=== PATIENT | female | born 1990 | race Caucasian/White ===

== ENCOUNTER 2016-10-02 03:33 | Emergency (ER) | payer MEDICAID ==
[~2016-10-02] VITALS: Ht 162.6 cm; Wt 59.5 kg
[~2016-10-02 03:33] MED LIST: ACYC-113 PO; ACYC-114 PO; ALBU0.63 NEB; ALBU18HF; ALBU18HF INH; ALBU2.5V NPPB; ALBU6.7H INH; ALBU8.5H5; ALBU8.5H5 INH; ALPR0.5T6 PO; FLUT1DIS; FLUT1DIS3 INH; GUAI5SYR PO; LEVO500T33 PO; LEVO750T26 PO; METH4TAB2 PO; MONT10TA6 PO; POTA10TA11 PO; PRED-402 PO; PRED20TA PO; PRED5TAB19; PRED5TAB25 PO; PROVENTIL; SINGULAR; Ventolin HFA INH
[2016-10-02] MEDS ORDERED: ALBUTEROL SULFATE 2.5 MG/3 ML NPPB ONE (05:30)
[2016-10-02] MEDS ORDERED: ALBUTEROL SULFATE 2.5MG/0.5ML ONE (05:49)
[2016-10-02 06:00] VITALS: BP 118/72
== END 2016-10-02 06:02 | disposition home or self-care (01) ==
LOC: ED 05:56
DX: J45.41 Moderate persistent asthma with (acute) exacerbation (principal)
CPT/HCPCS: 71010; 93005; 94640; 99284; J7613

== ENCOUNTER 2016-10-09 03:57 | Outpatient (CLI) | payer MEDICAID ==
[~2016-10-09] VITALS: Ht 160 cm; Wt 63.0 kg
[2016-10-09 04:00] VITALS: BP 117/72
[2016-10-09 04:15] LABS: DAU SCREEN DISCLAIMER
[2016-10-09] MEDS ORDERED: ALBUTEROL SULFATE 2.5 MG/3 ML ONE (04:37)
[2016-10-09 04:49] LABS: PATH.CAST-FLAG NOT PRESENT; SPERM-FLAG NOT PRESENT; SRC-FLAG NOT PRESENT; XTAL-FLAG NOT PRESENT; YLC-FLAG NOT PRESENT
[2016-10-09] MEDS: ALBUTEROL SULFATE 2.5 MG/3 ML NPPB PRN (05:25)
== END 2016-10-09 05:07 | disposition home or self-care (01) ==
LOC: LDOP 03:57
PROVIDERS: ATTEND Obstetrics & Gynecology
DX: O26.892 Other specified pregnancy related conditions, second trimester (principal); R10.9 Unspecified abdominal pain; O99.512 Diseases of the respiratory system complicating pregnancy, second trimester; J45.909 Unspecified asthma, uncomplicated; Z3A.27 27 weeks gestation of pregnancy
CPT/HCPCS: 59025; 80307; 81001; 87086; 94640; 99211; J7613; G0463

== ENCOUNTER 2016-10-13 14:56 | Inpatient (IN) | payer MEDICAID ==
[~2016-10-13] VITALS: Ht 160 cm; Wt 65.3 kg
[2016-10-13] MEDS ORDERED: MAGNESIUM SULFATE 1 GM in SODIUM CHLORIDE 0.9% 50 ML IV ONE ×2 (16:00→17:00)
[2016-10-13] MEDS ORDERED: ALBUTEROL/IPRATROPIUM 2.5MG/0.5MG, 3 ML ONE ×2 (16:31→17:12)
[2016-10-13] MEDS: ALBUTEROL/IPRATROPIUM 2.5MG/0.5MG, 3 ML NPPB SCH ×2 (16:35→17:16)
[2016-10-13] MEDS ORDERED: DOCUSATE 100 MG CAPSULE PO PRN (17:00)
[2016-10-13] MEDS ORDERED: ALBUTEROL SULFATE 2.5MG/0.5ML NPPB PRN (17:00)
[2016-10-13] MEDS ORDERED: ONDANSETRON ODT 4 MG PO PRN (17:00)
[2016-10-13 17:13] LABS: HEMOGLOBIN 12.3 g/dL (11.7-16.4)
[2016-10-13 17:21] LABS: BLOOD UREA NITROGEN 9 mg/dL (7-18)
[2016-10-13] MEDS: SODIUM CHLORIDE 0.9% 1,000 ML IV SCH (17:49)
[2016-10-13 18:00] VITALS: BP 121/81
[2016-10-13 18:32] VITALS: BP 119/82
[2016-10-13] MEDS: ACETAMINOPHEN 325 MG TABLET PO PRN (20:04)
[2016-10-13] MEDS: ALBUTEROL SULFATE 2.5MG/0.5ML NPPB SCH (21:00)
[2016-10-13] MEDS ORDERED: NITROFURANTOIN (MACROBID) 100 MG CAPSULE PO SCH (21:00)
[2016-10-13] MEDS ORDERED: POTASSIUM CHLORIDE 20 MEQ TAB.ER.PRT PO ONE (21:00)
[2016-10-13 22:01] LABS: DAU SCREEN DISCLAIMER
[2016-10-14] MEDS: ALBUTEROL SULFATE 2.5MG/0.5ML NPPB SCH ×8 (00:18→21:43)
[2016-10-14 01:56] VITALS: BP 125/72
[2016-10-14] MEDS: SODIUM CHLORIDE 0.9% 1,000 ML IV SCH ×3 (02:19→16:38)
[2016-10-14] MEDS ORDERED: ALBUTEROL SULFATE 2.5 MG/3 ML ONE ×7 (04:01→21:34)
[2016-10-14 06:25] LABS: HEMOGLOBIN 11.1 g/dL (11.7-16.4)
[2016-10-14 06:35] LABS: BLOOD UREA NITROGEN 8 mg/dL (7-18)
[2016-10-14 08:22] VITALS: BP 112/75
[2016-10-14] MEDS ORDERED: MONTELUKAST 10 MG TABLET PO SCH (09:00)
[2016-10-14] MEDS ORDERED: PRENATAL VIT/IRON/FA 1 EACH TABLET PO SCH (09:00)
[2016-10-14] MEDS ORDERED: FLUTICASONE/VILANTEROL 200-25MCG/INH INH SCH (09:00)
[2016-10-14] MEDS: ACETAMINOPHEN 325 MG TABLET PO PRN ×2 (09:15→13:45)
[2016-10-14 12:28] VITALS: BP 114/69
[2016-10-14] MEDS ORDERED: DIPHENHYDRAMINE 25 MG CAPSULE PO PRN (18:30)
[2016-10-14 19:41] VITALS: BP 112/76
[2016-10-15] MEDS: SODIUM CHLORIDE 0.9% 1,000 ML IV SCH (00:38)
[2016-10-15 01:39] VITALS: BP 93/58
[2016-10-15] MEDS: ALBUTEROL SULFATE 2.5MG/0.5ML NPPB SCH ×2 (03:00→07:00)
[2016-10-15] MEDS ORDERED: ALBUTEROL SULFATE 2.5 MG/3 ML ONE (06:59)
[2016-10-15 07:00] VITALS: BP 116/72
[2016-10-15] MEDS ORDERED: LISINOPRIL 20 MG TABLET PO SCH (09:00)
== END 2016-10-15 08:32 | disposition home or self-care (01) | DRG 781 ==
LOC: ED 15:53 → EDIP 15:54 → ED 16:07 → 3NE 18:43 → 4EST 10-14 01:46
PROVIDERS: ADMIT Family Medicine; ATTEND Family Medicine
PROC: 0T9B70Z Drainage of Bladder with Drainage Device, Via Natural or Artificial Opening (ICD-10-PCS; principal; 2016-10-13)
DX: O99.512 Diseases of the respiratory system complicating pregnancy, second trimester (principal); J45.901 Unspecified asthma with (acute) exacerbation; O26.892 Other specified pregnancy related conditions, second trimester; O26.852 Spotting complicating pregnancy, second trimester; O99.342 Other mental disorders complicating pregnancy, second trimester; F41.9 Anxiety disorder, unspecified; R07.81 Pleurodynia; J38.3 Other diseases of vocal cords; W10.9XXA Fall (on) (from) unspecified stairs and steps, initial encounter; Z81.1 Family history of alcohol abuse and dependence; Z3A.27 27 weeks gestation of pregnancy; Z87.440 Personal history of urinary (tract) infections; Z87.59 Personal history of other complications of pregnancy, childbirth and the puerperium; Z87.891 Personal history of nicotine dependence; Z79.899 Other long term (current) drug therapy; Z81.8 Family history of other mental and behavioral disorders; Z88.6 Allergy status to analgesic agent; Z88.1 Allergy status to other antibiotic agents; Z91.010 Allergy to peanuts; Z88.8 Allergy status to other drugs, medicaments and biological substances; Z91.018 Allergy to other foods; O09.32 Supervision of pregnancy with insufficient antenatal care, second trimester; Y93.89 Activity, other specified; Y92.89 Other specified places as the place of occurrence of the external cause; Y99.8 Other external cause status
CPT/HCPCS: 36415; 71020; 76805; 80048; 80307; 81003; 85025; 94640; 96365; J3475; J7611; J7620; J7030; Q0163

== ENCOUNTER 2016-11-05 12:17 | Observation (INO) | payer MEDICAID ==
[~2016-11-05] VITALS: Ht 160 cm; Wt 62.7 kg
[2016-11-05 12:30] VITALS: BP 102/62
[2016-11-05] MEDS ORDERED: LACTATED RINGERS 1,000 ML IV SCH (13:00)
[2016-11-05] MEDS ORDERED: ONDANSETRON 2MG/ML, 2ML IVPush PRN (13:00)
[2016-11-05] MEDS ORDERED: ONDANSETRON 2MG/ML, 2ML ONE (13:02)
[2016-11-05 13:19] LABS: BLOOD UREA NITROGEN 5 mg/dL (7-18)
[2016-11-05 13:20] LABS: ASPARTATE AMINO TRANSFERASE 8 U/L (15-37)
[2016-11-05] MEDS ORDERED: ALBUTEROL SULFATE 2.5 MG/3 ML ONE (13:26)
[2016-11-05] MEDS ORDERED: ALBUTEROL SULFATE 2.5 MG/3 ML NPPB PRN (13:30)
[2016-11-05 13:41] LABS: PATH.CAST-FLAG NOT PRESENT; SPERM-FLAG NOT PRESENT; SRC-FLAG NOT PRESENT; XTAL-FLAG NOT PRESENT; YLC-FLAG NOT PRESENT
== END 2016-11-05 15:44 | disposition home or self-care (01) ==
LOC: LDOP 12:17 → LDIP 12:45
PROVIDERS: ADMIT Student in an Organized Health Care Education/Training Program; ATTEND Student in an Organized Health Care Education/Training Program
DX: O23.43 Unspecified infection of urinary tract in pregnancy, third trimester (principal); O21.2 Late vomiting of pregnancy; O99.513 Diseases of the respiratory system complicating pregnancy, third trimester; J45.909 Unspecified asthma, uncomplicated; O26.893 Other specified pregnancy related conditions, third trimester; R19.7 Diarrhea, unspecified; Z3A.29 29 weeks gestation of pregnancy
CPT/HCPCS: 36415; 59025; 80053; 81001; 85025; 94640; 96361; 96374; G0378; J2405; J7120; 96360; J7613

== ENCOUNTER 2017-03-11 08:35 | Emergency (ER) | payer MEDICAID ==
[~2017-03-11] VITALS: Ht 162.6 cm; Wt 69.7 kg
[~2017-03-11 08:35] MED LIST changes: -LEVO500T33 PO; +LEVO500T47 PO
[2017-03-11 08:37] VITALS: BP 118/72
== END 2017-03-11 09:37 | disposition home or self-care (01) ==
LOC: ED 08:53
DX: K02.9 Dental caries, unspecified (principal); K08.89 Other specified disorders of teeth and supporting structures; J45.902 Unspecified asthma with status asthmaticus; G43.909 Migraine, unspecified, not intractable, without status migrainosus; Z90.49 Acquired absence of other specified parts of digestive tract
CPT/HCPCS: 99283

== ENCOUNTER 2017-03-20 11:58 | Emergency (ER) | payer MEDICAID ==
[~2017-03-20] VITALS: Ht 162.6 cm; Wt 69.8 kg
[2017-03-20 12:00] VITALS: BP 112/71
== END 2017-03-20 13:16 | disposition home or self-care (01) ==
LOC: ED 12:26
DX: K08.89 Other specified disorders of teeth and supporting structures (principal)
CPT/HCPCS: 99283

== ENCOUNTER 2017-06-24 09:11 | Emergency (ER) | payer MEDICAID ==
[~2017-06-24] VITALS: Ht 160 cm; Wt 76.4 kg
[2017-06-24] MEDS ORDERED: ALBUTEROL/IPRATROPIUM 2.5MG/0.5MG, 3 ML ONE ×2 (09:46→11:04)
[2017-06-24 10:00] LABS: HEMOGLOBIN 14.1 g/dL (11.7-16.4); WHITE BLOOD COUNT 6.8 x10^3/uL (3.4-10)
[2017-06-24] MEDS ORDERED: ALBUTEROL/IPRATROPIUM 2.5MG/0.5MG, 3 ML NPPB ONE ×2 (10:00→11:00)
[2017-06-24 10:07] LABS: BLOOD UREA NITROGEN 7 mg/dL (7-18)
[2017-06-24 12:04] VITALS: BP 136/60
== END 2017-06-24 12:06 | disposition home or self-care (01) ==
LOC: ED 11:17
DX: J45.41 Moderate persistent asthma with (acute) exacerbation (principal); N30.90 Cystitis, unspecified without hematuria; Z90.49 Acquired absence of other specified parts of digestive tract
CPT/HCPCS: 36415; 71010; 76830; 80048; 81001; 82040; 84703; 85025; 87086; 93005; 94640; 99285; J7512; J7620

== ENCOUNTER 2017-08-26 01:58 | Emergency (ER) | payer MEDICAID, OTHER ==
[~2017-08-26] VITALS: Ht 162.6 cm; Wt 72.1 kg
[2017-08-26] MEDS ORDERED: HYDROcodone/APAP 5/325 TABLET PO ONE (02:30)
[2017-08-26] MEDS ORDERED: HYDROcodone/APAP 5/325 TABLET ONE (02:36)
[2017-08-26 02:48] LABS: CULTURE INDICATED? YES; MICROSCOPIC INDICATED
[2017-08-26 02:49] LABS: HCG UR SG 1.039 (1.003-1.030)
[2017-08-26 03:42] LABS: WET PREP WBCS FEW (FEW)
[2017-08-26 03:44] LABS: CLUE CELLS PRESENT (NONE SEEN)
[2017-08-26 03:58] LABS: BASOPHILS # (AUTO) 0.03 x10^3/uL (0-0.1); BASOPHILS % (AUTO) 0 % (0-1); EOSINOPHILS # (AUTO) 0.25 x10^3/uL (0-0.4); EOSINOPHILS % (AUTO) 2 % (1-7); LYMPHOCYTES # (AUTO) 2.27 x10^3/uL (1-3.4); LYMPHOCYTES % (AUTO) 20 % (22-44); MD NO; MEAN CORPUSCULAR HEMOGLOBIN 26.9 pg (27.0-34.8); MEAN CORPUSCULAR HGB CONC 33.1 g/dL (32.4-35.8); MEAN CORPUSCULAR VOLUME 81.3 fL (80-100); MEAN PLATELET VOLUME 8.8 fL (7.4-10.4); MONOCYTES # (AUTO) 0.67 x10^3/uL (0.2-0.8); MONOCYTES % (AUTO) 6 % (2-9); NEUTROPHILS # (AUTO) 8.07 x10^3/uL (1.8-6.8); NEUTROPHILS % (AUTO) 72 % (42-75); PLATELET COUNT 338 x10^3/uL (130-400); RED BLOOD COUNT 5.16 x10^6/uL (3.82-5.3); RED CELL DISTRIBUTION WIDTH 14.5 % (9.6-15.2)
[2017-08-26] MEDS ORDERED: KETOROLAC 30 MG/1 ML IM ONE (04:00)
[2017-08-26] MEDS ORDERED: CEFTRIAXONE 250 MG IM ONE (04:00)
[2017-08-26] MEDS ORDERED: AZITHROMYCIN 500 MG TABLET PO ONE (04:00)
[2017-08-26 04:09] LABS: ALBUMIN 3.4 g/dL (3.4-5.0); ANION GAP 11 mmol/L (5-15); CALCIUM 8.7 mg/dL (8.5-10.1); CHLORIDE 98 mmol/L (98-107)
[2017-08-26 04:13] LABS: ALANINE AMINOTRANSFERASE 15 U/L (12-78); ALKALINE PHOSPHATASE 132 U/L (45-117); BILIRUBIN,TOTAL 0.6 mg/dL (0.2-1.0); CREATININE 0.84 mg/dL (0.55-1.02)
[2017-08-26] MEDS ORDERED: CEFTRIAXONE 250 MG ONE (04:17)
[2017-08-26] MEDS ORDERED: AZITHROMYCIN 250 MG TABLET ONE (04:17)
[2017-08-26] MEDS ORDERED: KETOROLAC 30 MG/1 ML ONE (04:17)
[2017-08-26 05:01] VITALS: BP 112/62
== END 2017-08-26 05:05 | disposition home or self-care (01) ==
LOC: ED 02:12
DX: R10.2 Pelvic and perineal pain (principal); N89.8 Other specified noninflammatory disorders of vagina; R73.9 Hyperglycemia, unspecified; G43.909 Migraine, unspecified, not intractable, without status migrainosus; J45.909 Unspecified asthma, uncomplicated; M41.9 Scoliosis, unspecified; Z87.891 Personal history of nicotine dependence
CPT/HCPCS: 36415; 80053; 81001; 81025; 85025; 87077; 87086; 87186; 87210; 87491; 87591; 87808; 93005; 96372; 99285; J0696; J1885

== ENCOUNTER 2017-09-08 00:21 | Emergency (ER) | payer OTHER ==
[~2017-09-08] VITALS: Ht 162.6 cm; Wt 70.0 kg
[2017-09-08] MEDS ORDERED: ALBUTEROL/IPRATROPIUM 2.5MG/0.5MG, 3 ML NPPB ONE (01:00)
[2017-09-08 01:04] LABS: CULTURE INDICATED? YES; MICROSCOPIC INDICATED
[2017-09-08] MEDS ORDERED: ALBUTEROL/IPRATROPIUM 2.5MG/0.5MG, 3 ML ONE ×2 (01:19→02:00)
[2017-09-08 01:52] VITALS: BP 11/76
[2017-09-08] MEDS ORDERED: ALBUTEROL SULFATE 2.5 MG/3 ML NPPB ONE (02:00)
[2017-09-12] MEDS ORDERED: METF500T4 PO (01:54)
[2017-09-12] MEDS ORDERED: PRED5TAB19 PO (05:46)
[2017-09-12] MEDS ORDERED: BUDE10.2 IH (05:46)
[2017-09-12] MEDS ORDERED: FLUO10CA13 PO (05:46)
[2017-09-12] MEDS ORDERED: METR500T PO (05:46)
== END 2017-09-08 02:20 | disposition home or self-care (01) ==
LOC: ED 00:43
DX: J20.8 Acute bronchitis due to other specified organisms (principal); B97.89 Other viral agents as the cause of diseases classified elsewhere; B37.3 Candidiasis of vulva and vagina; E11.65 Type 2 diabetes mellitus with hyperglycemia; J45.901 Unspecified asthma with (acute) exacerbation; G43.909 Migraine, unspecified, not intractable, without status migrainosus; M41.9 Scoliosis, unspecified; Z88.8 Allergy status to other drugs, medicaments and biological substances; Z88.1 Allergy status to other antibiotic agents; Z90.49 Acquired absence of other specified parts of digestive tract
CPT/HCPCS: 71046; 81001; 87086; 94640; 99285; J7512; J7613; J7620

== ENCOUNTER 2017-09-28 18:46 | Emergency (ER) | payer MEDICAID ==
[~2017-09-28] VITALS: Ht 161.3 cm; Wt 66.2 kg
[~2017-09-28 18:46] MED LIST changes: +BUDE10.2 IH; +FLUO10CA13 PO; +INSU100I13 SQ-INSULIN; +METF500T4 PO; +METR500T PO; +PRED5TAB19 PO
[2017-09-28] MEDS ORDERED: SODIUM CHLORIDE 0.9% 1,000ML IVBOLUS ONE (19:00)
[2017-09-28 19:27] LABS: FIO2 ROOM AIR %; PH, VENOUS 7.364 pH (7.320-7.420)
[2017-09-28] MEDS ORDERED: INSULIN REGULAR 100 UNITS/ML, 3ML VIAL IVPush ONE (19:30)
[2017-09-28 19:32] LABS: BASOPHILS # (AUTO) 0.07 x10^3/uL (0-0.1); BASOPHILS % (AUTO) 1 % (0-1); EOSINOPHILS # (AUTO) 0.36 x10^3/uL (0-0.4); EOSINOPHILS % (AUTO) 5 % (1-7); LYMPHOCYTES # (AUTO) 2.04 x10^3/uL (1-3.4); LYMPHOCYTES % (AUTO) 26 % (22-44); MD NO; MEAN CORPUSCULAR HEMOGLOBIN 27.2 pg (27.0-34.8); MEAN CORPUSCULAR HGB CONC 33.2 g/dL (32.4-35.8); MEAN CORPUSCULAR VOLUME 81.8 fL (80-100); MEAN PLATELET VOLUME 8.5 fL (7.4-10.4); MONOCYTES # (AUTO) 0.64 x10^3/uL (0.2-0.8); MONOCYTES % (AUTO) 8 % (2-9); NEUTROPHILS # (AUTO) 4.68 x10^3/uL (1.8-6.8); NEUTROPHILS % (AUTO) 60 % (42-75); PLATELET COUNT 347 x10^3/uL (130-400); RED BLOOD COUNT 5.75 x10^6/uL (3.82-5.3); RED CELL DISTRIBUTION WIDTH 14.8 % (9.6-15.2)
[2017-09-28 19:39] LABS: ACETONE, SERUM Small (20mg/dL) mg/dL (Negative)
[2017-09-28 19:40] LABS: ALANINE AMINOTRANSFERASE 20 U/L (12-78); ALBUMIN 3.9 g/dL (3.4-5.0); ANION GAP 9 mmol/L (5-15); CHLORIDE 105 mmol/L (98-107); CREATININE 0.67 mg/dL (0.55-1.02)
[2017-09-28] MEDS ORDERED: INSULIN REGULAR 100 UNITS/ML, 3ML VIAL ONE (19:40)
[2017-09-28 19:42] LABS: ALKALINE PHOSPHATASE 119 U/L (45-117); BILIRUBIN,TOTAL 0.8 mg/dL (0.2-1.0); TOTAL PROTEIN 7.7 g/dL (6.4-8.2)
[2017-09-28] MEDS ORDERED: ALBUTEROL SULFATE 2.5 MG/3 ML ONE (19:45)
[2017-09-28 19:48] LABS: MICROSCOPIC INDICATED
[2017-09-28 19:52] LABS: CULTURE INDICATED? YES
[2017-09-28] MEDS ORDERED: ALBUTEROL SULFATE 2.5 MG/3 ML NPPB ONE (20:00)
[2017-09-28] MEDS ORDERED: FLUCONAZOLE 100 MG TABLET ONE (20:10)
[2017-09-28] MEDS ORDERED: CEFTRIAXONE PMX 1GM/50ML 50 ML ONE (20:11)
[2017-09-28] MEDS ORDERED: KETOROLAC 30 MG/1 ML ONE (20:11)
[2017-09-28] MEDS ORDERED: FLUCONAZOLE 100 MG TABLET PO ONE (20:30)
[2017-09-28] MEDS ORDERED: CEFTRIAXONE PMX 1GM/50ML 50 ML IV ONE (20:30)
[2017-09-28] MEDS ORDERED: KETOROLAC 30 MG/1 ML IVPush ONE (20:30)
[2017-09-28 21:29] VITALS: BP 122/69
== END 2017-09-28 21:32 | disposition home or self-care (01) ==
LOC: ED 19:48
DX: N30.00 Acute cystitis without hematuria (principal); J45.21 Mild intermittent asthma with (acute) exacerbation; E11.65 Type 2 diabetes mellitus with hyperglycemia; Z79.4 Long term (current) use of insulin
CPT/HCPCS: 36415; 71046; 80053; 81001; 82010; 82803; 85025; 87086; 94640; 96361; 96365; 96375; 99285; J0696; J1885; J7030; J7613

== ENCOUNTER 2017-09-30 11:31 | Emergency (ER) | payer MEDICAID ==
[~2017-09-30] VITALS: Ht 160 cm; Wt 66.9 kg
[2017-09-30 13:41] LABS: PH, VENOUS 7.367 pH (7.320-7.420)
[2017-09-30 13:42] LABS: BASOPHILS # (AUTO) 0.06 x10^3/uL (0-0.1); BASOPHILS % (AUTO) 1 % (0-1); EOSINOPHILS # (AUTO) 0.45 x10^3/uL (0-0.4); EOSINOPHILS % (AUTO) 7 % (1-7); LYMPHOCYTES # (AUTO) 1.87 x10^3/uL (1-3.4); LYMPHOCYTES % (AUTO) 30 % (22-44); MD NO; MEAN CORPUSCULAR HEMOGLOBIN 26.9 pg (27.0-34.8); MEAN CORPUSCULAR HGB CONC 33.2 g/dL (32.4-35.8); MEAN CORPUSCULAR VOLUME 80.9 fL (80-100); MEAN PLATELET VOLUME 8.2 fL (7.4-10.4); MONOCYTES # (AUTO) 0.51 x10^3/uL (0.2-0.8); MONOCYTES % (AUTO) 8 % (2-9); NEUTROPHILS # (AUTO) 3.39 x10^3/uL (1.8-6.8); NEUTROPHILS % (AUTO) 54 % (42-75); PLATELET COUNT 309 x10^3/uL (130-400); RED BLOOD COUNT 5.55 x10^6/uL (3.82-5.3); RED CELL DISTRIBUTION WIDTH 15.1 % (9.6-15.2)
[2017-09-30 13:51] LABS: ACETONE, SERUM Small (20mg/dL) mg/dL (Negative)
[2017-09-30 13:55] LABS: ALANINE AMINOTRANSFERASE 20 U/L (12-78); ALBUMIN 3.7 g/dL (3.4-5.0); ANION GAP 8 mmol/L (5-15); CALCIUM 8.5 mg/dL (8.5-10.1); CHLORIDE 106 mmol/L (98-107); CREATININE 0.63 mg/dL (0.55-1.02)
[2017-09-30 13:57] LABS: ALKALINE PHOSPHATASE 107 U/L (45-117); BILIRUBIN,TOTAL 0.8 mg/dL (0.2-1.0); TOTAL PROTEIN 7.3 g/dL (6.4-8.2)
[2017-09-30] MEDS ORDERED: ONDANSETRON 2MG/ML, 2ML IVPush ONE (14:00)
[2017-09-30] MEDS ORDERED: ALBUTEROL/IPRATROPIUM 2.5MG/0.5MG, 3 ML NPPB ONE (14:00)
[2017-09-30] MEDS ORDERED: MORPHINE SULFATE 4 MG/ML, 1ML IVPush PRN (14:00)
[2017-09-30] MEDS ORDERED: SODIUM CHLORIDE 0.9% 1,000ML IVBOLUS ONE (14:00)
[2017-09-30] MEDS ORDERED: SODIUM CHLORIDE 0.9% 1,000 ML IV ONE (14:00)
[2017-09-30] MEDS ORDERED: MORPHINE SULFATE 4 MG/ML, 1ML ONE (14:07)
[2017-09-30] MEDS ORDERED: ONDANSETRON 2MG/ML, 2ML ONE (14:07)
[2017-09-30] MEDS ORDERED: ALBUTEROL/IPRATROPIUM 2.5MG/0.5MG, 3 ML ONE (14:08)
[2017-09-30 14:40] LABS: MICROSCOPIC INDICATED
[2017-09-30 15:19] LABS: CULTURE INDICATED? NO
[2017-09-30 16:22] VITALS: BP 104/60
== END 2017-09-30 16:32 | disposition home or self-care (01) ==
LOC: ED 14:52
DX: J45.30 Mild persistent asthma, uncomplicated (principal); R10.13 Epigastric pain; R10.11 Right upper quadrant pain; E11.65 Type 2 diabetes mellitus with hyperglycemia
CPT/HCPCS: 36415; 71045; 80053; 81001; 82010; 82803; 83690; 85025; 93005; 94640; 96361; 96374; 96375; 99285; J2405; J7030; 82962

== ENCOUNTER 2017-10-10 01:42 | Emergency (ER) | payer MEDICAID ==
[~2017-10-10] VITALS: Ht 162.6 cm; Wt 66.0 kg
[2017-10-10 02:14] LABS: PH, VENOUS 7.366 pH (7.320-7.420)
[2017-10-10 02:19] LABS: BASOPHILS # (AUTO) 0.06 x10^3/uL (0-0.1); BASOPHILS % (AUTO) 1 % (0-1); EOSINOPHILS % (AUTO) 6 % (1-7); LYMPHOCYTES # (AUTO) 1.84 x10^3/uL (1-3.4); LYMPHOCYTES % (AUTO) 27 % (22-44); MD NO; MEAN CORPUSCULAR HEMOGLOBIN 27.4 pg (27.0-34.8); MEAN CORPUSCULAR HGB CONC 33.3 g/dL (32.4-35.8); MEAN CORPUSCULAR VOLUME 82.2 fL (80-100); MEAN PLATELET VOLUME 8.4 fL (7.4-10.4); MONOCYTES # (AUTO) 0.47 x10^3/uL (0.2-0.8); MONOCYTES % (AUTO) 7 % (2-9); NEUTROPHILS # (AUTO) 3.96 x10^3/uL (1.8-6.8); NEUTROPHILS % (AUTO) 59 % (42-75); PLATELET COUNT 367 x10^3/uL (130-400); RED BLOOD COUNT 5.21 x10^6/uL (3.82-5.3); RED CELL DISTRIBUTION WIDTH 15.4 % (9.6-15.2)
[2017-10-10 02:25] LABS: ACETONE, SERUM Small (20mg/dL) mg/dL (Negative)
[2017-10-10 02:28] LABS: ALANINE AMINOTRANSFERASE 23 U/L (12-78); ALBUMIN 3.7 g/dL (3.4-5.0); ANION GAP 11 mmol/L (5-15); CALCIUM 8.7 mg/dL (8.5-10.1); CHLORIDE 102 mmol/L (98-107); CREATININE 0.93 mg/dL (0.55-1.02)
[2017-10-10 02:30] LABS: ALKALINE PHOSPHATASE 150 U/L (45-117); BILIRUBIN,TOTAL 0.4 mg/dL (0.2-1.0); TOTAL PROTEIN 7.3 g/dL (6.4-8.2)
[2017-10-10] MEDS ORDERED: SODIUM CHLORIDE 0.9% 1,000ML IVBOLUS ONE (02:30)
[2017-10-10] MEDS ORDERED: KETOROLAC 30 MG/1 ML ONE (02:50)
[2017-10-10] MEDS ORDERED: INSULIN REGULAR 100 UNITS/ML, 3ML VIAL IVPush ONE (03:00)
[2017-10-10] MEDS ORDERED: KETOROLAC 30 MG/1 ML IVPush ONE (03:00)
[2017-10-10 04:22] VITALS: BP 140/86
== END 2017-10-10 04:36 | disposition home or self-care (01) ==
LOC: ED 02:47
DX: E11.65 Type 2 diabetes mellitus with hyperglycemia (principal); Z91.19 Patient's noncompliance with other medical treatment and regimen; Z79.899 Other long term (current) drug therapy; Z90.49 Acquired absence of other specified parts of digestive tract; Z88.1 Allergy status to other antibiotic agents; G43.909 Migraine, unspecified, not intractable, without status migrainosus; Z79.84 Long term (current) use of oral hypoglycemic drugs
CPT/HCPCS: 36415; 80053; 82010; 82803; 85025; 93005; 96374; 96375; 99285; J1885; J7030

== ENCOUNTER 2017-12-06 13:34 | Emergency (ER) | payer MEDICAID ==
[~2017-12-06] VITALS: Ht 154.9 cm; Wt 68.9 kg
[2017-12-06] MEDS ORDERED: SODIUM CHLORIDE 0.9% 1,000ML IVBOLUS ONE (14:00)
[2017-12-06] MEDS ORDERED: SODIUM CHLORIDE FLUSH 10ML SYR IVF ONE (14:00)
[2017-12-06] MEDS ORDERED: ALBUTEROL/IPRATROPIUM 2.5MG/0.5MG, 3 ML NPPB ONE (14:00)
[2017-12-06] MEDS ORDERED: ALBUTEROL/IPRATROPIUM 2.5MG/0.5MG, 3 ML ONE ×2 (14:03→14:46)
[2017-12-06 14:22] LABS: BASOPHILS # (AUTO) 0.02 x10^3/uL (0-0.1); BASOPHILS % (AUTO) 0 % (0-1); EOSINOPHILS # (AUTO) 0.46 x10^3/uL (0-0.4); EOSINOPHILS % (AUTO) 4 % (1-7); LYMPHOCYTES # (AUTO) 1.43 x10^3/uL (1-3.4); LYMPHOCYTES % (AUTO) 13 % (22-44); MD NO; MEAN CORPUSCULAR HEMOGLOBIN 27.9 pg (27.0-34.8); MEAN CORPUSCULAR VOLUME 84.8 fL (80-100); MEAN PLATELET VOLUME 7.7 fL (7.4-10.4); MONOCYTES # (AUTO) 0.73 x10^3/uL (0.2-0.8); MONOCYTES % (AUTO) 6 % (2-9); NEUTROPHILS # (AUTO) 8.67 x10^3/uL (1.8-6.8); NEUTROPHILS % (AUTO) 77 % (42-75); PLATELET COUNT 382 x10^3/uL (130-400); RED CELL DISTRIBUTION WIDTH 13.8 % (9.6-15.2)
[2017-12-06 14:30] LABS: ALANINE AMINOTRANSFERASE 19 U/L (12-78); ALBUMIN 3.4 g/dL (3.4-5.0); ANION GAP 8 mmol/L (5-15); CALCIUM 8.7 mg/dL (8.5-10.1); CHLORIDE 111 mmol/L (98-107); CREATININE 0.66 mg/dL (0.55-1.02)
[2017-12-06 14:35] LABS: ALKALINE PHOSPHATASE 70 U/L (45-117); BILIRUBIN,TOTAL 0.3 mg/dL (0.2-1.0); TOTAL PROTEIN 7.2 g/dL (6.4-8.2)
[2017-12-06 14:56] LABS: MICROSCOPIC INDICATED
[2017-12-06 15:08] LABS: CULTURE INDICATED? NO
[2017-12-06 15:45] VITALS: BP 115/69
== END 2017-12-06 15:48 | disposition home or self-care (01) ==
LOC: ED 15:36
DX: E10.65 Type 1 diabetes mellitus with hyperglycemia (principal); E10.649 Type 1 diabetes mellitus with hypoglycemia without coma; J45.31 Mild persistent asthma with (acute) exacerbation; J02.9 Acute pharyngitis, unspecified; G43.909 Migraine, unspecified, not intractable, without status migrainosus; Z79.4 Long term (current) use of insulin
CPT/HCPCS: 80053; 81001; 82962; 83690; 84703; 85025; 93005; 94640; 96360; 99285; J7030; J7620

== ENCOUNTER 2017-12-06 19:43 | Emergency (ER) | payer MEDICAID ==
[~2017-12-06] VITALS: Ht 160 cm; Wt 69.7 kg
[2017-12-06 19:44] VITALS: BP 124/80
[2017-12-06] MEDS ORDERED: HYDROcodone/APAP 7.5-325MG/15ML UDC PO PRN (20:00)
[2017-12-06] MEDS ORDERED: ALBUTEROL/IPRATROPIUM 2.5MG/0.5MG, 3 ML ONE ×2 (20:14→21:05)
[2017-12-06] MEDS: ALBUTEROL/IPRATROPIUM 2.5MG/0.5MG, 3 ML NPPB SCH ×2 (20:29→21:25)
[2017-12-06] MEDS ORDERED: HYDROcodone/APAP 7.5-325MG/15ML UDC ONE (20:38)
== END 2017-12-06 21:45 | disposition home or self-care (01) ==
LOC: ED 21:41
DX: J45.21 Mild intermittent asthma with (acute) exacerbation (principal); J02.8 Acute pharyngitis due to other specified organisms; E11.65 Type 2 diabetes mellitus with hyperglycemia; Z98.51 Tubal ligation status; Z88.1 Allergy status to other antibiotic agents; Z79.84 Long term (current) use of oral hypoglycemic drugs
CPT/HCPCS: 71046; 82962; 87081; 87880; 94640; 99285; J7512; J7620

== ENCOUNTER 2018-01-18 04:13 | Emergency (ER) | payer MEDICAID ==
[~2018-01-18] VITALS: Ht 162.6 cm; Wt 68.9 kg
[~2018-01-18 04:13] MED LIST changes: -METF500T4 PO; +METF500T5 PO
[2018-01-18] MEDS ORDERED: ALBUTEROL/IPRATROPIUM 2.5MG/0.5MG, 3 ML ONE ×2 (04:27→06:19)
[2018-01-18] MEDS ORDERED: ONDANSETRON ODT 4 MG ONE (04:41)
[2018-01-18] MEDS ORDERED: ONDANSETRON ODT 4 MG PO ONE (05:00)
[2018-01-18 05:34] LABS: ALBUMIN 3.5 g/dL (3.4-5.0); ANION GAP 9 mmol/L (5-15); BASOPHILS # (AUTO) 0.08 x10^3/uL (0-0.1); BASOPHILS % (AUTO) 1 % (0-1); CALCIUM 8.5 mg/dL (8.5-10.1); CHLORIDE 110 mmol/L (98-107); EOSINOPHILS # (AUTO) 0.42 x10^3/uL (0-0.4); EOSINOPHILS % (AUTO) 4 % (1-7); LYMPHOCYTES % (AUTO) 30 % (22-44); MD NO; MEAN CORPUSCULAR HEMOGLOBIN 27.6 pg (27.0-34.8); MEAN CORPUSCULAR HGB CONC 32.7 g/dL (32.4-35.8); MEAN CORPUSCULAR VOLUME 84.3 fL (80-100); MEAN PLATELET VOLUME 8.4 fL (7.4-10.4); MONOCYTES # (AUTO) 0.71 x10^3/uL (0.2-0.8); MONOCYTES % (AUTO) 7 % (2-9); NEUTROPHILS # (AUTO) 5.94 x10^3/uL (1.8-6.8); NEUTROPHILS % (AUTO) 59 % (42-75); PLATELET COUNT 329 x10^3/uL (130-400); RED BLOOD COUNT 4.93 x10^6/uL (3.82-5.3); RED CELL DISTRIBUTION WIDTH 14.5 % (9.6-15.2)
[2018-01-18 05:36] LABS: CREATININE 0.58 mg/dL (0.55-1.02)
[2018-01-18] MEDS ORDERED: ALBUTEROL SULFATE 2.5 MG/3 ML NPPB ONE (06:00)
[2018-01-18 06:02] VITALS: BP 100/56
== END 2018-01-18 07:27 | disposition home or self-care (01) ==
LOC: ED 05:22
DX: J45.41 Moderate persistent asthma with (acute) exacerbation (principal); G43.909 Migraine, unspecified, not intractable, without status migrainosus; J45.909 Unspecified asthma, uncomplicated; E11.65 Type 2 diabetes mellitus with hyperglycemia; J96.90 Respiratory failure, unspecified, unspecified whether with hypoxia or hypercapnia; Z87.891 Personal history of nicotine dependence; Z98.51 Tubal ligation status
CPT/HCPCS: 36415; 71046; 80048; 82040; 85025; 94640; 99285; J7512; J7613; Q0162

== ENCOUNTER 2018-02-08 17:44 | Inpatient (IN) | payer MEDICAID ==
[~2018-02-08] VITALS: Ht 160 cm; Wt 68.2 kg
[2018-02-08 18:30] LABS: BASOPHILS # (AUTO) 0.06 x10^3/uL (0-0.1); BASOPHILS % (AUTO) 1 % (0-1); EOSINOPHILS # (AUTO) 0.43 x10^3/uL (0-0.4); EOSINOPHILS % (AUTO) 6 % (1-7); LYMPHOCYTES # (AUTO) 2.42 x10^3/uL (1-3.4); LYMPHOCYTES % (AUTO) 32 % (22-44); MD NO; MEAN CORPUSCULAR HEMOGLOBIN 28.6 pg (27.0-34.8); MEAN CORPUSCULAR HGB CONC 34.1 g/dL (32.4-35.8); MEAN PLATELET VOLUME 7.9 fL (7.4-10.4); MONOCYTES # (AUTO) 0.49 x10^3/uL (0.2-0.8); MONOCYTES % (AUTO) 7 % (2-9); NEUTROPHILS # (AUTO) 4.21 x10^3/uL (1.8-6.8); NEUTROPHILS % (AUTO) 55 % (42-75); PLATELET COUNT 374 x10^3/uL (130-400); RED BLOOD COUNT 4.94 x10^6/uL (3.82-5.3); RED CELL DISTRIBUTION WIDTH 15.1 % (9.6-15.2)
[2018-02-08 18:32] LABS: ALANINE AMINOTRANSFERASE 22 U/L (12-78); ALBUMIN 3.8 g/dL (3.4-5.0); ANION GAP 8 mmol/L (5-15); CALCIUM 8.9 mg/dL (8.5-10.1); CHLORIDE 107 mmol/L (98-107); CREATININE 0.75 mg/dL (0.55-1.02)
[2018-02-08 18:34] LABS: ALKALINE PHOSPHATASE 79 U/L (45-117); BILIRUBIN,TOTAL 0.2 mg/dL (0.2-1.0); TOTAL PROTEIN 7.5 g/dL (6.4-8.2)
[2018-02-08 18:41] LABS: ACETONE, SERUM Negative (Negative)
[2018-02-08] MEDS ORDERED: ALBUTEROL/IPRATROPIUM 2.5MG/0.5MG, 3 ML ONE ×2 (20:59→23:30)
[2018-02-08] MEDS: ALBUTEROL/IPRATROPIUM 2.5MG/0.5MG, 3 ML NPPB SCH ×2 (21:02→21:03)
[2018-02-08] MEDS ORDERED: ALBUTEROL 0.5%, 20ML ONE (21:08)
[2018-02-08] MEDS ORDERED: MAGNESIUM SULFATE PMX 2GM/50ML 50 ML IVPB ONE (22:00)
[2018-02-08 22:33] LABS: MICROSCOPIC NOT IND
[2018-02-08 22:38] LABS: CULTURE INDICATED? NO
[2018-02-09] MEDS ORDERED: LABETALOL 5MG/ML, 20ML IVPush PRN (02:00)
[2018-02-09] MEDS ORDERED: ONDANSETRON ODT 4 MG PO PRN (02:00)
[2018-02-09] MEDS ORDERED: ALBUTEROL SULFATE 2.5MG/0.5ML NPPB PRN (02:00)
[2018-02-09] MEDS ORDERED: ALBUTEROL/IPRATROPIUM 2.5MG/0.5MG, 3 ML NPPB SCH (03:00)
[2018-02-09] MEDS ORDERED: ALBUTEROL/IPRATROPIUM 2.5MG/0.5MG, 3 ML NPPB PRN (03:00)
[2018-02-09] MEDS ORDERED: ALBUTEROL/IPRATROPIUM 2.5MG/0.5MG, 3 ML ONE ×3 (03:23→12:43)
[2018-02-09] MEDS: ALBUTEROL/IPRATROPIUM 2.5MG/0.5MG, 3 ML NPPB SCH ×6 (03:28→23:00)
[2018-02-09] MEDS ORDERED: methylPREDNISolone SOD SUCC 40 MG/ML ONE ×3 (03:40→18:21)
[2018-02-09] MEDS: methylPREDNISolone SOD SUCC 40 MG/ML IV SCH ×3 (03:47→18:23)
[2018-02-09 05:45] LABS: ANION GAP 13 mmol/L (5-15); CALCIUM 9.1 mg/dL (8.5-10.1); CHLORIDE 101 mmol/L (98-107); CREATININE 1.09 mg/dL (0.55-1.02)
[2018-02-09 05:58] LABS: HEMOGLOBIN A1C 7.6 % (4.2-6.3)
[2018-02-09] MEDS ORDERED: LORazepam 0.5MG TABLET ONE ×2 (07:37→12:28)
[2018-02-09] MEDS: LORazepam 0.5MG TABLET PO PRN ×3 (07:41→20:08)
[2018-02-09] MEDS: INSULIN LISPRO 100 UNITS/ML, PEN SQ-INSULIN SCH ×4 (08:43→22:42)
[2018-02-09] MEDS ORDERED: FLUTICASONE/VILANTEROL 100-25MCG/INH INH SCH (09:00)
[2018-02-09] MEDS ORDERED: TEMPLATE NON-FORMULARY MED. (Montelukast Sodium** (Singulair**) 10 MG) PO SCH (09:00)
[2018-02-09] MEDS ORDERED: ACETAMINOPHEN 500 MG TABLET ONE ×2 (09:23→12:28)
[2018-02-09] MEDS ORDERED: FLUOXETINE 10 MG CAP ONE (10:15)
[2018-02-09] MEDS ORDERED: AZITHROMYCIN 500 MG TABLET ONE (10:15)
[2018-02-09] MEDS: FLUOXETINE 10 MG CAP PO SCH (10:19)
[2018-02-09] MEDS: ACETAMINOPHEN 500 MG TABLET PO PRN ×2 (10:19→12:40)
[2018-02-09] MEDS: metFORMIN 500 MG TABLET PO SCH ×2 (10:19→22:41)
[2018-02-09] MEDS: AZITHROMYCIN 500 MG TABLET PO SCH (10:19)
[2018-02-09] MEDS ORDERED: MONTELUKAST 10 MG TABLET PO SCH (19:04)
[2018-02-09 20:00] VITALS: BP 129/73
[2018-02-09] MEDS: KETOROLAC 30 MG/1 ML IM/IV PRN (20:08)
[2018-02-09] MEDS ORDERED: INSU100I11 SQ-INSULIN (20:31)
[2018-02-09] MEDS ORDERED: INSULIN GLARGINE 100 UNITS/ML, PEN SQ-INSULIN SCH (21:00)
[2018-02-09] MEDS ORDERED: HYDROcodone/APAP 5/325 TABLET PO ONE (22:00)
[2018-02-10 01:40] VITALS: BP 97/52
[2018-02-10] MEDS: KETOROLAC 30 MG/1 ML IM/IV PRN (02:47)
[2018-02-10] MEDS: methylPREDNISolone SOD SUCC 40 MG/ML IV SCH ×2 (02:47→11:26)
[2018-02-10 02:50] VITALS: BP 108/57
[2018-02-10] MEDS: ALBUTEROL/IPRATROPIUM 2.5MG/0.5MG, 3 ML NPPB SCH ×2 (03:00→06:55)
[2018-02-10] MEDS ORDERED: SODIUM CHLORIDE 0.9% 100 ML IV SCH (06:30)
[2018-02-10 06:59] VITALS: BP 113/63
[2018-02-10] MEDS: FLUOXETINE 10 MG CAP PO SCH (07:59)
[2018-02-10] MEDS: AZITHROMYCIN 500 MG TABLET PO SCH (07:59)
[2018-02-10] MEDS ORDERED: ACETAMINOPHEN 500 MG TABLET PO ONE (08:01)
[2018-02-10] MEDS: INSULIN LISPRO 100 UNITS/ML, PEN SQ-INSULIN SCH ×2 (08:01→11:28)
[2018-02-10] MEDS ORDERED: IPRA3AMP30 NPPB (12:51)
[2018-02-10] MEDS ORDERED: MELOXICAM 15 MG TABLET PO ONE (13:00)
[2018-02-10 13:32] VITALS: BP 123/77
[2018-02-10] MEDS ORDERED: ACETAMINOPHEN 500 MG TABLET PO SCH (16:00)
[2018-02-10] MEDS ORDERED: INSULIN GLARGINE 100 UNITS/ML, PEN SQ-INSULIN SCH (21:00)
== END 2018-02-10 13:30 | disposition home or self-care (01) | DRG 189 ==
LOC: ED 22:33 → EDIP 02-09 01:03 → 4WST 02-09 18:41
PROVIDERS: ADMIT Family Medicine; ATTEND Family Medicine
DX: J96.01 Acute respiratory failure with hypoxia (principal); J45.51 Severe persistent asthma with (acute) exacerbation; F17.210 Nicotine dependence, cigarettes, uncomplicated; F41.1 Generalized anxiety disorder; G43.909 Migraine, unspecified, not intractable, without status migrainosus; F32.9 Major depressive disorder, single episode, unspecified; R00.0 Tachycardia, unspecified; N89.8 Other specified noninflammatory disorders of vagina; F11.90 Opioid use, unspecified, uncomplicated; M41.9 Scoliosis, unspecified; F12.90 Cannabis use, unspecified, uncomplicated; E11.65 Type 2 diabetes mellitus with hyperglycemia; R10.31 Right lower quadrant pain; I10 Essential (primary) hypertension; Z87.440 Personal history of urinary (tract) infections; Z91.19 Patient's noncompliance with other medical treatment and regimen; Z90.49 Acquired absence of other specified parts of digestive tract; Z79.4 Long term (current) use of insulin; Z98.51 Tubal ligation status; Z88.6 Allergy status to analgesic agent; Z88.1 Allergy status to other antibiotic agents; Z91.010 Allergy to peanuts; Z88.8 Allergy status to other drugs, medicaments and biological substances; Z91.018 Allergy to other foods
CPT/HCPCS: 36415; 99285; J7620; 71045; 80048; 80053; 81003; 82010; 82800; 82962; 83036; 84703; 85025; 94640; 94644; 96365; 96366; J1885; J1815; J2920; J3475; J7512

== ENCOUNTER 2018-03-04 11:39 | Emergency (ER) | payer MEDICAID ==
[~2018-03-04] VITALS: Ht 162.6 cm; Wt 69.1 kg
[~2018-03-04 11:39] MED LIST changes: +INSU100I11 SQ-INSULIN; +IPRA3AMP30 NPPB
[2018-03-04] MEDS ORDERED: ALBUTEROL/IPRATROPIUM 2.5MG/0.5MG, 3 ML ONE (13:10)
[2018-03-04] MEDS: ALBUTEROL/IPRATROPIUM 2.5MG/0.5MG, 3 ML NPPB SCH ×2 (13:19→13:21)
[2018-03-04 13:21] LABS: BASOPHILS # (AUTO) 0.05 x10^3/uL (0-0.1); BASOPHILS % (AUTO) 1 % (0-1); EOSINOPHILS # (AUTO) 0.51 x10^3/uL (0-0.4); EOSINOPHILS % (AUTO) 8 % (1-7); LYMPHOCYTES # (AUTO) 1.65 x10^3/uL (1-3.4); LYMPHOCYTES % (AUTO) 26 % (22-44); MD NO; MEAN CORPUSCULAR HEMOGLOBIN 28.6 pg (27.0-34.8); MEAN CORPUSCULAR VOLUME 84.1 fL (80-100); MEAN PLATELET VOLUME 7.6 fL (7.4-10.4); MONOCYTES # (AUTO) 0.44 x10^3/uL (0.2-0.8); MONOCYTES % (AUTO) 7 % (2-9); NEUTROPHILS # (AUTO) 3.77 x10^3/uL (1.8-6.8); NEUTROPHILS % (AUTO) 59 % (42-75); PLATELET COUNT 311 x10^3/uL (130-400); RED BLOOD COUNT 4.38 x10^6/uL (3.82-5.3); RED CELL DISTRIBUTION WIDTH 15.1 % (9.6-15.2)
[2018-03-04 13:31] LABS: ALBUMIN 3.2 g/dL (3.4-5.0); ANION GAP 5 mmol/L (5-15); CALCIUM 8.2 mg/dL (8.5-10.1); CHLORIDE 113 mmol/L (98-107)
[2018-03-04 13:46] VITALS: BP 117/63
== END 2018-03-04 14:36 | disposition home or self-care (01) ==
LOC: ED 14:20
DX: J45.51 Severe persistent asthma with (acute) exacerbation (principal); R19.7 Diarrhea, unspecified; R51 Headache; E11.65 Type 2 diabetes mellitus with hyperglycemia; Z98.51 Tubal ligation status; Z90.89 Acquired absence of other organs; Z87.891 Personal history of nicotine dependence; R50.9 Fever, unspecified
CPT/HCPCS: 36415; 71045; 80048; 82040; 85025; 93005; 94640; 99285; J7512; J7620